=== PATIENT | female | born 1980 | race Hispanic/Latino ===

== ENCOUNTER 2019-11-06 08:00 | Outpatient (NON) | payer OTHER, SELFPAY ==
[2019-11-07 13:37] LABS: SARS-CoV-2 RNA PCR Negative
== END 2019-11-06 08:01 ==
PROVIDERS: Visit Provider Physician Assistant
DX: Z03.818 Encounter for observation for suspected exposure to other biological agents ruled out (principal)
CPT/HCPCS: 87635; C9803; U0003

== ENCOUNTER 2024-12-07 17:29 | Emergency (ER) | payer OTHER, SELFPAY ==
--- NOTE | ~2024-12-07 | XR_ITS ---
3 VIEWS LUMBAR SPINE Ordering provider: Kunal Maravilla MD History: . pain s/p fall . Comparison: None. FINDINGS: VERTEBRAL BODIES: No visible fracture or subluxation. Degenerative changes. DISK SPACES: Narrowing of all the disc spaces. SOFT TISSUES: Normal. IMPRESSION: No acute osseous abnormality lumbar spine. Multilevel degenerative disc disease. Reviewed, dictated and finalized at location A.
--- NOTE | ~2024-12-07 | XR_ITS ---
XR hip RT 2V w AP pelvis Ordering provider: Kunal Maravilla MD History: . pain s/p fall . Comparison: None. FINDINGS: BONES: No acute fracture or dislocation. HIP JOINT SPACES: Bilateral hip moderate osteoarthritic changes. SACROILIAC JOINT SPACES/LUMBAR SPINE: The sacroiliac joint spaces are normal. Normal visualized lower lumbar spine. PUBIC SYMPHYSIS: Normal. SOFT TISSUES: Normal. IMPRESSION: No acute osseous abnormality pelvis and right hip. Reviewed, dictated and finalized at location A.
--- NOTE | ~2024-12-07 | XR_ITS ---
XR knee RT 3V Ordering provider: Kunal Maravilla MD History: . pain s/p fall . Comparison: None. FINDINGS: BONES: No acute fracture or dislocation. JOINT SPACES: Marginal osteophytes seen medially. SOFT TISSUES: Normal. IMPRESSION: No acute osseous abnormality right knee. Mild osteoarthritic changes. Reviewed, dictated and finalized at location A.
--- OUTSIDE RECORDS SUMMARY | 2024-12-07 17:32 | XMS_ITS | Clinical Summary ---
Author Organization [facility] Address [address] [place] [address] Care Team Providers Care Visual Lead Name Role Phone Unavailable Primary Care Provider Unavailabl e Source Comments [facility],non-owned Affiliates and Associated Physician Practices is amultiple site organization consisting of ambulatory clinics and hospital sitesin [place], [place], [place] and [place]. This disclosure is being madepursuant to the Care Everywhere program and may not contain all information available regarding this patient. 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 Gender Identity Not on file Sexual Orientation Not on file Plan of Treatment Health Maintenance Due Date Last Done Comments COLOGUARD (AGES 45-75) - COL ON CA SCREENING 1979 COLON MONITORING 1979 COLONOSCOPY - COLON CA SCREENING 1979 CT COLONOGRAPHY - COLON CA SCREENING 1979 Colorectal Cancer Screening 1979 FIT - COLON CA SCREENING 1979 FLEX SIG - COLON CA SCREENING 1979 LIPID TESTING 1979 MAMMOGRAM 1979 HIV SCREENING 1994 HEPATITIS C SCREENING 01/05/1997 DTAP/TDAP/TD VACCINES (1 - Tdap) 1998 HEPATITIS B VACCINE (1 of 3 - 19+ 3-dose series) 1998 COVID-19 VACCINE ( - 2023-2 5 season) 2024 DEPRESSION SCREENING 06/27/2024 INFLUENZA VACCINE (Season Ended) 2025 ZOSTER VACCINE (1 of 2) 2029 HIB VACCINE Aged Out No longer eligi ble based on patient's age to complete this topic HPV VACCINE Aged Out No longer eligi ble based on patient's age to complete this topic MENINGOCOCCAL (Group B) VACC INE SHARED DECISION-MAKING Aged Out No longer eligibl e based on patient's age to complete this topic MENINGOCOCCAL GROUPS A/C/Y/W VACCINE Aged Out No longer eligible b ased on patient's age to complete this topic PNEUMOCOCCAL VACCINE Aged Out No long er eligible based on patient's age to complete this topic
[2024-12-07 19:05] VITALS: BP 133/69; PULSE 79; RESP 18; TEMP 36.6; O2SAT 98
--- OUTSIDE RECORDS SUMMARY | 2024-12-07 19:32 | XMS_ITS | Clinical Summary ---
Author Organization [facility] Address [address] [place] [address] Care Team Providers Care Lip Of Shank Cutter Name Role Phone Unavailable Primary Care Provider Unavailabl e Source Comments [facility],non-owned Affiliates and Associated Physician Practices is amultiple site organization consisting of ambulatory clinics and hospital sitesin [place], [place], [place] and [place]. This disclosure is being madepursuant to the Care Everywhere program and may not contain all information available regarding this patient. 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
--- NOTE | 2024-12-07 19:48 | ED.LOWEXIN ---
HPI - Extremity Injury (Lower) General Chief Complaint: Extremity Injury, Lower Stated Complaint: fall 01 november, RLE pain Time Seen by Provider: 12/07/24 19:18 History of Present Illness HPI Narrative: 44-year-old female with no chronic medical conditions presenting to the emergency department for chronic musculoskeletal pain. She states that almost 1 year ago she fell and injured her knee and back as well as hip has been having pain persistently since. She is ambulatory without assistance, not taking any medications aside from Aleve. Did not seek any medical attention for this previously. No history of surgeries. Patient states she fell about 1 month ago as well and it is exacerbated the pain. Patient denies hitting her head or losing consciousness. Not any blood thinners. Pain localized to the right-sided hip, knee and low back. Related Data Allergies Allergy/AdvReac Type Severity Reaction Status Date / Time No Known Allergies Allergy Verified 12/07/24 19:06 Review of Systems Review of Systems: As reviewed above in HPI Exam Narrative: GENERAL: [Well-appearing, well-nourished, and in no acute distress.] HEAD: [Normocephalic, atraumatic.] EYES: [PERRLA and EOMI.] ENT: Nares clear, no rhinorrhea or epistaxis. Mucous membranes moist. NECK: Supple. CHEST: [Clear to auscultation. No respiratory distress.] HEART: [Regular rate and rhythm]. No murmur heard. [Normal peripheral pulses.] ABDOMEN: [Soft, nondistended], [nontender], [No rigidity or guarding] EXTREMITIES: Normal range of motion. [No edema.] SKIN: Warm, dry, no rash. NEURO: [No focal deficits]. Alert and oriented [x3.] Ambulatory in the examination room, full strength and sensation throughout both upper and lower extremities. No sensation deficits appreciated. Ataxia PSYCH: [Normal mood and affect.] Course Vital Signs Vital signs: Vital Signs Temperature 36.6 C 12/07/24 19:05 Pulse Rate 79 12/07/24 19:05 Respiratory Rate 18 12/07/24 19:05 Blood Pressure 133/69 12/07/24 19:05 Pulse Oximetry 98 12/07/24 19:05 Temperature 36.8 C 12/07/24 20:10 Pulse Rate 64 12/07/24 20:10 Respiratory Rate 17 12/07/24 20:10 Blood Pressure 122/71 12/07/24 20:10 Pulse Oximetry 98 12/07/24 20:10 MDM - Extremity Injury (Lower) MDM Narrative Medical decision making narrative: 44-year-old female presenting for approximately 1 year of chronic musculoskeletal pain exacerbated by a recent fall 5-6 weeks ago. Patient did not hit her head during this fall or lose consciousness and not take any blood thinners. She has been using Aleve for symptom control. Pain localized to the right hip and back, right knee. She is ambulatory in the examination room with no neurological deficits. Warm extremities. Normal vital signs. Given chronicity of injury no suspected acute emergencies today but will obtain x-ray imaging and have her follow-up with a primary care provider. She endorses not having 1 at this time so we will provide her names and numbers upon discharge. X-rays of the lumbar spine hip and knee were obtained. X-rays were all unremarkable for any acute osseous abnormalities but she does have some degenerative disease. She will have to follow up with her primary doctor which we will refer her to. Medical Records Attestation: I reviewed the patient's medical records. Imaging Data Attestation: I personally reviewed and interpreted this imaging study as follows: My impression: Impressions Hip/Pelvis X-Ray 12/07/24 20:26 IMPRESSION: No acute osseous abnormality pelvis and right hip. Knee X-Ray 12/07/24 20:29 IMPRESSION: No acute osseous abnormality right knee. Mild osteoarthritic changes. Lumbar Spine X-Ray 12/07/24 20:30 IMPRESSION: No acute osseous abnormality lumbar spine. Multilevel degenerative disc disease. Discharge Plan Discharge Clinical Impression: Musculoskeletal strain, Degenerative disc disease Patient Disposition: Home Condition: Stable Instructions: Antibiotic Form, Musculoskeletal Pain (ED), Degenerative Disc Disease (ED), Arthritis (ED) Additional Instructions: No acute fractures or dislocations. Your x-ray show degenerative disease such as osteoarthritis which is a chronic process. Take Tylenol and ibuprofen for pain control. You will need to see a primary care provider and if pain gets worse even benefit from physical therapy. Return with any emergent concerns. Call the provided physician for a follow-up primary care appointment. Patient Language: Turkmen Follow-up/Referrals: Deven Isaac MD [Physician] - 1 Week (PCP establish) PHYSICIAN,CONSTRUCTION SKILLS TEACHER [Primary Care Provider] - Time of Disposition: 21:15
[2024-12-07 20:10] VITALS: BP 122/71; PULSE 64; RESP 17; TEMP 36.8; O2SAT 98
== END 2024-12-07 21:24 | disposition home or self-care (01) ==
PROVIDERS: Emergency Provider Student in an Organized Health Care Education/Training Program
DX: S39.012A Strain of muscle, fascia and tendon of lower back, initial encounter (principal); S86.911A Strain of unspecified muscle(s) and tendon(s) at lower leg level, right leg, initial encounter; S76.011A Strain of muscle, fascia and tendon of right hip, initial encounter; M51.369 Other intervertebral disc degeneration, lumbar region without mention of lumbar back pain or lower extremity pain; W19.XXXA Unspecified fall, initial encounter
CPT/HCPCS: 72100; 73502; 73562; 99284